=== PATIENT | female | born 1975 | race Caucasian/White ===

== ENCOUNTER 2020-06-20 08:17 | Outpatient (CLI) | payer OTHER, SELFPAY ==
--- NOTE | 2020-06-20 08:34 | US_ITS ---
WS: [id number] ULTRASOUND ABDOMEN LIMITED CLINICAL INFORMATION: RUQ ABD PAIN COMPARISON: None. FINDINGS: Liver Size: Normal. Craniocaudal length: 14.3 cm. Echogenicity: Normal. Surface nodularity: None. Mass (size and location): None. Bile ducts Intrahepatic ducts: Normal. Common bile duct diameter: 0.3 cm. Gallbladder Normal. Gallstones: None. Gallbladder sludge: None. Gallbladder wall thickening: None. Pericholecystic fluid: None. Sonographic Anaya sign: Absent. Pancreas Normal as visualized. Right kidney: Normal. Hydronephrosis: None. Size: 10.4 cm x 3.8 cm x 4.0 cm. Abdominal aorta and IVC Visualized portions are normal. Ascites: None. US/US abdomen limited [id number] IMPRESSION: Normal right upper quadrant ultrasound
== END 2020-06-20 08:18 | disposition home or self-care (01) ==
LOC: RAD 08:31
PROVIDERS: PCP Electrodiagnostic Medicine; Visit Provider Electrodiagnostic Medicine
DX: R10.11 Right upper quadrant pain (principal); E05.00 Thyrotoxicosis with diffuse goiter without thyrotoxic crisis or storm
CPT/HCPCS: 76705

== ENCOUNTER → 2020-07-06 16:40 | Outpatient (BNVA) | payer OTHER, SELFPAY | PROVIDERS: PCP Electrodiagnostic Medicine; Visit Provider Electrodiagnostic Medicine | DX: Z11.59 Encounter for screening for other viral diseases (principal) | CPT/HCPCS: 87635 ==

== ENCOUNTER 2020-11-28 12:43 | Outpatient (CLI) | payer OTHER, SELFPAY ==
--- NOTE | 2020-11-28 12:50 | XRR_ITS ---
PROCEDURE INFORMATION: Exam: XR Thoracic Spine Exam date and time: 11/28/2020 12:57 PM Age: 44 years old Clinical indication: Pain in thoracic spine; Patient HX: Right sided back pain, beside shoulder blade; Additional info: Right sided rib pain/back pain/arthritis TECHNIQUE: Imaging protocol: XR of the thoracic spine. Views: 3 views. COMPARISON: No relevant prior studies available. FINDINGS: Bones/joints: Normal. No acute fracture. Normal alignment. Soft tissues: Compression fracture inferior endplate T11 vertebral body. Other findings: Otherwise negative for acute bony abnormalities.. XR/XR thoracic spine 2V [id number] IMPRESSION: 1. Compression fracture inferior endplate T11 vertebral body 2. Otherwise No acute findings.
== END 2020-11-28 12:44 | disposition home or self-care (01) ==
PROVIDERS: PCP Electrodiagnostic Medicine; Visit Provider Electrodiagnostic Medicine
DX: R07.81 Pleurodynia (principal); S22.080A Wedge compression fracture of T11-T12 vertebra, initial encounter for closed fracture; X58.XXXA Exposure to other specified factors, initial encounter
CPT/HCPCS: 72070

== ENCOUNTER 2020-12-20 13:18 | Outpatient (CLI) | payer OTHER, SELFPAY ==
--- NOTE | 2020-12-20 13:40 | MR_ITS ---
WS: [id number] MRI THORACIC SPINE WITHOUT CONTRAST TECHNIQUE: Sagittal T1, T2 and STIR imaging. Axial T2 imaging. Noncontrast imaging obtained. CLINICAL INFORMATION: UNSPECIFIED FX OF T11-T12 VERTEBRA, BACK PAIN COMPARISON: Radiograph January 28, 2021 FINDINGS: No acute compression fractures. No bone marrow edema. Mild thoracic kyphosis. No acute compression. No high-grade central canal stenosis. Tiny syrinx withi n the thoracic cord most prominent at T8-9 measuring approximately 1 mm in maximum AP dimension. Syri nx extends from approximately T1-T11.Small right proximal foraminal protrusion T9-T10 with mild right foraminal narrowing. Moderate facet arthropathy lower thoracic spine. Tiny central protrusion T3-T4 with slight effacement of ventral thecal sac. Slight contact of the tho racic cord. Adrenal glands are normal. Normal caliber thoracic aorta. Cervical canal is patent on marketing research intern imaging. MR/MR thoracic spin wo con* [id number] IMPRESSION: 1. Mild thoracic kyphosis. No acute appearing compression fractures. Mild wendie ccation T11-T12 with minimal chronic anterior wedging. 2. Small syrinx within the thoracic cord T1-T11. This measures 1 mm in maximum AP dimension at T8-T9. Cord signal is otherwise normal. 3. Cervical canal appears patent on marketing [employer] intern imaging. This can be further evaluat ed with cervical spine MRI considering the thoracic syrinx. 4. Small right proximal foraminal protrusion T9-T10 with mild right foraminal narrowing. 5. Moderate facet arthropathy lower thoracic spine. 6. Tiny central protrusion with slight contact of the thoracic cord at T3-4. N o significant central canal stenosis.
== END 2020-12-20 13:19 | disposition home or self-care (01) ==
PROVIDERS: PCP Electrodiagnostic Medicine; Visit Provider Electrodiagnostic Medicine
DX: S22.089A Unspecified fracture of T11-T12 vertebra, initial encounter for closed fracture (principal); X58.XXXA Exposure to other specified factors, initial encounter; M54.9 Dorsalgia, unspecified; M51.24 Other intervertebral disc displacement, thoracic region; M47.814 Spondylosis without myelopathy or radiculopathy, thoracic region
CPT/HCPCS: 72146

== ENCOUNTER 2020-12-26 12:22 | Outpatient (CLI) | payer OTHER, SELFPAY ==
--- NOTE | 2020-12-26 12:36 | XRR_ITS ---
PROCEDURE INFORMATION: Exam: XR Left Wrist Exam date and time: 12/26/2020 12:39 PM Age: 44 years old Clinical indication: Condition or disease; Arthritis; Type not specified; Wrist; Left; Additional info: Arthritis/arthralgia/graves' dz TECHNIQUE: Imaging protocol: XR Left wrist. Views: 3 or more views. COMPARISON: No relevant prior studies available. FINDINGS: Bones/joints: No acute pathology. Soft tissues: Unremarkable. XR/XR wrist LT min 3V* [id number] IMPRESSION: No acute pathology.
--- NOTE | 2020-12-26 12:36 | XRR_ITS ---
PROCEDURE INFORMATION: Exam: XR Chest Exam date and time: 12/26/2020 12:39 PM Age: 44 years old Clinical indication: Condition or disease; Other: FX of t11-t12 vertebra/arthritis/grave's dz TECHNIQUE: Imaging protocol: XR of the chest Views: 2 views. COMPARISON: No relevant prior studies available. FINDINGS: Lungs: Hyperinflaiton without airspace disease. Pleural spaces: No pleural effusion. Heart/Mediastinum: No cardiomegaly. Bones/joints: Degenerative change. XR/XR chest 2V* [id number] IMPRESSION: Hyperinflaiton without airspace disease.
--- NOTE | 2020-12-26 12:36 | XRR_ITS ---
PROCEDURE INFORMATION: Exam: XR Right Wrist Exam date and time: 12/26/2020 1:11 PM Age: 44 years old Clinical indication: Condition or disease; Arthritis; Type not specified; Wrist; Right; Additional info: Arthritis/arthralgia/graves' dz TECHNIQUE: Imaging protocol: XR Right wrist. Views: 3 or more views. COMPARISON: No relevant prior studies available. FINDINGS: Bones/joints: Mild degenerative change involving the 1st carpometacarpal joint. No acute bony injury or malalignment. Soft tissues: Unremarkable. XR/XR wrist RT min 3V* [id number] IMPRESSION: Mild degenerative change involving the 1st carpometacarpal joint.
== END 2020-12-26 12:23 | disposition home or self-care (01) ==
PROVIDERS: PCP Electrodiagnostic Medicine; Visit Provider Electrodiagnostic Medicine
DX: S22.089A Unspecified fracture of T11-T12 vertebra, initial encounter for closed fracture (principal); X58.XXXA Exposure to other specified factors, initial encounter; M19.90 Unspecified osteoarthritis, unspecified site; E03.9 Hypothyroidism, unspecified; M25.50 Pain in unspecified joint; E05.00 Thyrotoxicosis with diffuse goiter without thyrotoxic crisis or storm
CPT/HCPCS: 71046; 73110

== ENCOUNTER → 2021-04-12 08:56 | Outpatient (BNVA) | payer OTHER, SELFPAY | PROVIDERS: PCP Electrodiagnostic Medicine; Visit Provider Internal Medicine Rheumatology | DX: M19.90 Unspecified osteoarthritis, unspecified site (principal); G95.0 Syringomyelia and syringobulbia; Z79.899 Other long term (current) drug therapy; M76.60 Achilles tendinitis, unspecified leg; Z11.59 Encounter for screening for other viral diseases; Z11.1 Encounter for screening for respiratory tuberculosis; R76.8 Other specified abnormal immunological findings in serum; M25.552 Pain in left hip; Z71.89 Other specified counseling | CPT/HCPCS: 99205 ==

== ENCOUNTER 2021-04-12 11:13 | Outpatient (CLI) | payer OTHER, SELFPAY ==
--- NOTE | 2021-04-12 11:26 | XR_ITS ---
WS: [id number] Right foot, 3 views, 04/12/2021 Clinical Data: Z79.899 - Other snf (current) drug therapy Comparison: None. Findings: No fractures or dislocations are seen. No bone destruction or erosion is noted. The joint spaces and soft tissues are normal. No periarticular demineralization or calcifications are seen. XR/XR foot RT min 3V* [id number] Impression: Negative right foot.
--- NOTE | 2021-04-12 11:26 | XR_ITS ---
WS: [id number] Pelvis, AP view, 04/12/2021 Clinical Data: M19.90 - Unspecified osteoarthritis, unspecified site Comparison: None. Findings: No fractures or dislocations are seen. The SI joints and pubic symphysis are intact. The soft tissues are not remarkable. The hips show minimal calcification adjacent to the lateral acetabular lips. There is fecal material in the colon. XR/XR pelvis 1-2V* [id number] Impression: Negative for fracture.
--- NOTE | 2021-04-12 11:26 | XR_ITS ---
WS: [id number] Right hand, 3 views, 04/12/2021 Clinical Data: Z79.899 - Other [facility] (current) drug therapy Comparison: None. Findings: No fractures or dislocations are seen. The soft tissues are unremarkable. The joint space s are normal No periarticular demineralization or calcifications are seen. XR/XR hand RT min 3V* [id number] Impression: Negative right hand.
--- NOTE | 2021-04-12 11:26 | XR_ITS ---
WS: [id number] Left foot, 3 views, 04/12/2021 Clinical Data: Z79.899 - Other [facility] (current) drug therapy Comparison: None. Findings: No fractures or dislocations are seen. No bone destruction or erosion is noted. The joint spaces and soft tissues are normal. No periarticular demineralization or calcifications are seen. XR/XR foot LT min 3V* [id number] Impression: Negative left foot.
--- NOTE | 2021-04-12 11:26 | XR_ITS ---
WS: [id number] Left hand, 3 views, 04/12/2021 Clinical Data: Z79.899 - Other [facility] (current) drug therapy Comparison: None. Findings: No fractures or dislocations are seen. The soft tissues are unremarkable. The joint spaces are normal No periarticular demineralization or calcifications are seen. XR/XR hand LT min 3V* [id number] Impression: Negative left hand.
[2021-04-12 12:23] LABS: Basophils % 0.6 %; Eosinophils # 0.1 10^3/uL (0.0-0.8); Eosinophils % 1.6 %; Hematocrit 40.9 % (37.0-47.0); Lymphocytes # 1.2 10^3/uL (0.8-4.8); Lymphocytes % 36.7 %; Mean Corpuscular HGB Conc 31.8 g/dL (30.0-36.0); Mean Corpuscular Hemoglobin 28.8 pg (28.0-34.0); Mean Corpuscular Volume 90.7 fL (81-99); Mean Platelet Volume 10.4 fL (7.4-10.4); Monocytes # 0.3 10^3/uL (0.2-0.9); Monocytes % 8.6 %; Neutrophils # 1.63 10^3/uL (1.8-7.7); Neutrophils % 52.2 %; Nucleated Red Blood Cells % 0 %; Platelet Count 207 10^3/cmm (130-400); Red Blood Count 4.51 10^6/uL (4.1-5.3); Red Cell Distribution Width 12.8 % (12.1-15.1); White Blood Count 3.1 10^3/uL (4.0-10.0)
[2021-04-12 13:00] LABS: Erythrocyte Sedimentation Rate 16 mm/hr (0-15)
[2021-04-12 13:22] LABS: Hepatitis B Core AB, Total Non-Reactive (Nonreactive); Hepatitis B Surface Antigen Non-Reactive (Nonreactive); Hepatitis C Virus Antibody Non-Reactive (Nonreactive)
[2021-04-12 15:20] LABS: Alanine Aminotransferase 20 U/L (0-33); Albumin Level 4.8 g/dL (3.5-5.2); Alkaline Phosphatase 85 IU/L (35-105); Aspartate Amino Transferase 22 U/L (0-32); C Reactive Protein 0.6 mg/L (0.0-4.9); Globulin 2.7 g/dL (1.3-4.6); Glomerular Filtration Rate 90.1 mL/min (90-130); Total Bilirubin 0.4 mg/dL (0.15-1.2); Total Protein 7.5 g/dL (6.6-8.7)
[2021-04-13 14:46] LABS: Cyclic Citrullinated Peptide <16 UNITS
[2021-04-14 12:02] LABS: Quantiferon Mitogen 7.85 IU/mL; Quantiferon Nil 0.02 IU/mL; Quantiferon TB Gold NEGATIVE (NEGATIVE)
[2021-04-14 19:57] LABS: HLA-B27 NEGATIVE (NEGATIVE)
== END 2021-04-12 11:14 | disposition home or self-care (01) ==
PROVIDERS: PCP Electrodiagnostic Medicine; Visit Provider Internal Medicine Rheumatology
DX: M19.90 Unspecified osteoarthritis, unspecified site (principal); Z79.899 Other long term (current) drug therapy; Z11.59 Encounter for screening for other viral diseases; M45.9 Ankylosing spondylitis of unspecified sites in spine; Z11.1 Encounter for screening for respiratory tuberculosis
CPT/HCPCS: 36415; 72170; 73130; 73630; 80076; 82565; 85025; 85651; 86140; 86431; 86480; 86704; 86803; 86812; 87340

== ENCOUNTER → 2021-05-24 13:25 | Outpatient (BNVA) | payer OTHER, SELFPAY | PROVIDERS: PCP Electrodiagnostic Medicine; Visit Provider Internal Medicine Rheumatology | DX: M19.90 Unspecified osteoarthritis, unspecified site (principal); R76.8 Other specified abnormal immunological findings in serum; Z79.899 Other long term (current) drug therapy; G95.0 Syringomyelia and syringobulbia; M76.61 Achilles tendinitis, right leg; M25.552 Pain in left hip; Z82.61 Family history of arthritis; Z71.89 Other specified counseling | CPT/HCPCS: 36415; 85025; 99214 ==

== ENCOUNTER → 2021-08-09 13:59 | Outpatient (BNVA) | payer OTHER, SELFPAY | PROVIDERS: PCP Electrodiagnostic Medicine; Visit Provider Internal Medicine Rheumatology | DX: M19.90 Unspecified osteoarthritis, unspecified site (principal); R76.8 Other specified abnormal immunological findings in serum; Z79.899 Other long term (current) drug therapy; G95.0 Syringomyelia and syringobulbia; M76.61 Achilles tendinitis, right leg; M70.62 Trochanteric bursitis, left hip; Y93.9 Activity, unspecified; Z82.61 Family history of arthritis | CPT/HCPCS: 99214 ==

== ENCOUNTER → 2022-03-28 14:01 | Outpatient (BNVA) | payer OTHER, SELFPAY | PROVIDERS: PCP Electrodiagnostic Medicine; Visit Provider Internal Medicine | DX: E89.0 Postprocedural hypothyroidism (principal) | CPT/HCPCS: 84439; 84443 ==

== ENCOUNTER → 2022-05-28 10:56 | Outpatient (BNVA) | payer OTHER, SELFPAY | PROVIDERS: PCP Electrodiagnostic Medicine; Visit Provider Internal Medicine Rheumatology | DX: M19.90 Unspecified osteoarthritis, unspecified site (principal); Z79.899 Other long term (current) drug therapy; R76.8 Other specified abnormal immunological findings in serum | CPT/HCPCS: 80076; 82565; 85025; 86140 ==

== ENCOUNTER 2022-08-08 14:13 | Outpatient (CLI) | payer OTHER, SELFPAY | END 2022-08-08 14:14 | disposition home or self-care (01) | LOC: LAB 14:13 | PROVIDERS: PCP Family Medicine; Visit Provider Internal Medicine Rheumatology | DX: M54.50 Low back pain, unspecified (principal); M25.551 Pain in right hip; M25.552 Pain in left hip; R76.8 Other specified abnormal immunological findings in serum; M19.90 Unspecified osteoarthritis, unspecified site | CPT/HCPCS: 36415; 72100; 73522; 80076; 82565; 85025; 85651; 86140; 86812 ==

== ENCOUNTER → 2022-11-02 10:25 | Outpatient (BNVA) | payer OTHER, SELFPAY | PROVIDERS: PCP Family Medicine; Visit Provider Family Medicine | DX: Z13.89 Encounter for screening for other disorder (principal); E89.0 Postprocedural hypothyroidism | CPT/HCPCS: 80076; 82565; 84439; 84443; 85025; 86140 ==

== ENCOUNTER 2023-01-29 14:18 | Outpatient (CLI) | payer OTHER, SELFPAY ==
[2023-01-29 15:21] LABS: Basophils % 0.7 %; Hematocrit 38.3 % (37.0-47.0); Lymphocytes # 1.1 10^3/uL (0.8-4.8); Lymphocytes % 27.5 %; Mean Corpuscular HGB Conc 31.3 g/dL (30.0-36.0); Mean Corpuscular Hemoglobin 28.2 pg (28.0-34.0); Mean Corpuscular Volume 89.9 fl (81-99); Mean Platelet Volume 10.7 fL (7.4-10.4); Monocytes # 0.4 10^3/uL (0.2-0.9); Monocytes % 8.5 %; Neutrophils # 2.56 10^3/uL (1.8-7.7); Neutrophils % 61.8 %; Nucleated Red Blood Cells % 0 %; Platelet Count 240 10^3/cmm (130-400); Red Blood Count 4.26 10^6/uL (4.1-5.3); Red Cell Distribution Width 12.9 % (12.1-15.1); White Blood Count 4.1 10^3/uL (4.0-10.0)
[2023-01-29 15:52] LABS: Alanine Aminotransferase 13 U/L (0-33); Albumin Level 3.9 g/dL (3.5-5.2); Alkaline Phosphatase 57 U/L (35-105); Aspartate Amino Transferase 24 U/L (0-32); Globulin 2.7 g/dL (1.3-4.6); Glomerular Filtration Rate 106.7 mL/min (90-130); Total Bilirubin 0.2 mg/dL (0.15-1.2); Total Protein 6.6 g/dL (6.6-8.7)
== END 2023-01-29 14:19 | disposition home or self-care (01) ==
PROVIDERS: PCP Family Medicine; Visit Provider Internal Medicine Rheumatology
DX: M19.90 Unspecified osteoarthritis, unspecified site (principal); Z79.899 Other long term (current) drug therapy
CPT/HCPCS: 36415; 80076; 82565; 85025; 86140

== ENCOUNTER → 2023-10-29 14:03 | Outpatient (BNVA) | payer MEDICARE, SELFPAY | PROVIDERS: PCP Family Medicine; Visit Provider Internal Medicine Rheumatology | DX: Z79.899 Other long term (current) drug therapy (principal); M19.90 Unspecified osteoarthritis, unspecified site; M34.9 Systemic sclerosis, unspecified; M26.623 Arthralgia of bilateral temporomandibular joint | CPT/HCPCS: 99214 ==

== ENCOUNTER → 2024-02-04 14:08 | Outpatient (BNVA) | payer MEDICARE, SELFPAY | PROVIDERS: PCP Family Medicine; Visit Provider Internal Medicine Rheumatology | DX: Z79.899 Other long term (current) drug therapy (principal); M34.9 Systemic sclerosis, unspecified; M19.90 Unspecified osteoarthritis, unspecified site; M26.623 Arthralgia of bilateral temporomandibular joint | CPT/HCPCS: 99214 ==

== ENCOUNTER → 2024-07-29 13:45 | Outpatient (BNVA) | payer MEDICARE, SELFPAY | PROVIDERS: PCP Family Medicine; Visit Provider Internal Medicine Rheumatology | DX: E78.1 Pure hyperglyceridemia (principal); M34.9 Systemic sclerosis, unspecified; M19.90 Unspecified osteoarthritis, unspecified site; M26.623 Arthralgia of bilateral temporomandibular joint; Z79.899 Other long term (current) drug therapy; G89.29 Other chronic pain; M54.9 Dorsalgia, unspecified | CPT/HCPCS: 99214 ==

== ENCOUNTER → 2024-08-19 14:45 | Outpatient (BNVA) | payer MEDICARE, SELFPAY | PROVIDERS: PCP Family Medicine; Visit Provider Clinical Nurse Specialist Adult Health | DX: J06.9 Acute upper respiratory infection, unspecified (principal) | CPT/HCPCS: 87400; 87426 ==

== ENCOUNTER → 2025-01-27 13:06 | Outpatient (BNVA) | payer MEDICARE, SELFPAY | PROVIDERS: PCP Family Medicine; Visit Provider Internal Medicine Rheumatology | DX: M34.9 Systemic sclerosis, unspecified (principal); M19.90 Unspecified osteoarthritis, unspecified site; M26.623 Arthralgia of bilateral temporomandibular joint; Z79.899 Other long term (current) drug therapy | CPT/HCPCS: 99214 ==

== ENCOUNTER → 2025-07-05 13:44 | Outpatient (BNVA) | payer MEDICARE, SELFPAY | PROVIDERS: PCP Family Medicine; Visit Provider Internal Medicine Rheumatology | DX: M34.9 Systemic sclerosis, unspecified (principal); M13.80 Other specified arthritis, unspecified site; M26.623 Arthralgia of bilateral temporomandibular joint; Z79.899 Other long term (current) drug therapy; M76.61 Achilles tendinitis, right leg; M47.814 Spondylosis without myelopathy or radiculopathy, thoracic region; M70.62 Trochanteric bursitis, left hip | CPT/HCPCS: 99214 ==